=== PATIENT | female | born 1995 | race Caucasian/White ===

== ENCOUNTER 2020-08-06 22:45 | Emergency (ER) | payer OTHER | END 2020-08-06 23:03 | disposition home or self-care (01) | LOC: BURERS 22:45 | DX: S50.812A Abrasion of left forearm, initial encounter (principal); S70.212A Abrasion, left hip, initial encounter; F41.9 Anxiety disorder, unspecified; F32.9 Major depressive disorder, single episode, unspecified; Z79.899 Other long term (current) drug therapy; V89.2XXA Person injured in unspecified motor-vehicle accident, traffic, initial encounter | CPT/HCPCS: 99283; G0390 ==